=== PATIENT | female | born 1965 | race Caucasian/White ===

== ENCOUNTER 2017-04-02 06:20 | Day surgery (SDC) | payer BC ==
[~2017-04-02 06:20] MED LIST: Buffered Lidocaine 0.9% SYRIN* 5 ML/SYR SYRINGE INTRADERM ONE; Buffered Lidocaine 0.9% SYRIN* 5 ML/SYR SYRINGE ONE; CeFAZolin 1 GM PREMIX(*) 1 GM BAG (REFRIGERATE) IVPB ONE; Dexamethasone IV* 4 MG/ML 1 ML (4 MG) ONE; Famotidine IV* 10 MG/ML 2 ML (20 mg) IV SLOW PU ONE; Famotidine IV* 10 MG/ML 2 ML (20 mg) ONE; Ondansetron INJ* 2 MG/ML VIAL ONE; Scopolamine 1.5 mg* PATCH ONE; ceFAZolin 2 GM PREMIX(*) 2 GM/50 ML BAG IVPB ONE
[2017-04-02] MEDS ORDERED: Bupivacaine 0.25% EPI 200,000* 30 ML SDV ONE (07:27)
[2017-04-02] MEDS ORDERED: Propofol* 10 MG/ML 20 ML BTL IV PUSH ONE (07:36)
[2017-04-02] MEDS ORDERED: Midazolam* 1 MG/ML 5 ML VIAL (5 MG) ONE (07:36)
[2017-04-02] MEDS ORDERED: Rocuronium* 10 MG/ML VIAL ONE (07:36)
[2017-04-02] MEDS ORDERED: Lidocaine 2% PF * 5 ML VIAL ONE (07:36)
[2017-04-02] MEDS ORDERED: fentaNYL* 50 MCG/ML 5 ML VIAL (250 MCG VIAL) ONE (07:37)
[2017-04-02] MEDS ORDERED: fentaNYL* 50 MCG/ML 2 ML VIAL (100 MCG VIAL) ONE ×7 (08:46→13:14)
[2017-04-02] MEDS ORDERED: HYDROcodone/ACETAMIN 5-325 MG* 1 TAB PO PRN (09:04)
[2017-04-02] MEDS ORDERED: PROCHLORPERAZINE INJ 5 MG/ML 2 ML VIAL IV PRN (09:04)
[2017-04-02] MEDS ORDERED: ceFAZolin VIAL(*) 1 GM VIAL ONE ×2 (12:08→12:09)
[2017-04-02] MEDS: fentaNYL* 50 MCG/ML 2 ML VIAL (100 MCG VIAL) IV PRN ×3 (12:51→13:18)
[2017-04-02] MEDS ORDERED: oxyCODONE/Acetamin 5/325 MG* TAB ONE ×2 (13:14→13:59)
[2017-04-02] MEDS: oxyCODONE/Acetamin 5/325 MG* TAB PO PRN ×2 (13:15→14:00)
[2017-04-02 14:39] VITALS: BP 131/76
== END 2017-04-02 15:01 | disposition home or self-care (01) ==
LOC: OR 06:20
PROVIDERS: ATTEND Plastic Surgery
DX: N62 Hypertrophy of breast (principal); E11.9 Type 2 diabetes mellitus without complications; E03.9 Hypothyroidism, unspecified; Z79.84 Long term (current) use of oral hypoglycemic drugs; Z79.82 Long term (current) use of aspirin
CPT/HCPCS: 88305; A9270-GY; J0690; J1100; J2250; J2405; J2704; J3010

== ENCOUNTER 2018-05-06 06:08 | Day surgery (SDC) | payer BC ==
[~2018-05-06 06:08] MED LIST changes: -Buffered Lidocaine 0.9% SYRIN* 5 ML/SYR SYRINGE ONE; -CeFAZolin 1 GM PREMIX(*) 1 GM BAG (REFRIGERATE) IVPB ONE; -Dexamethasone IV* 4 MG/ML 1 ML (4 MG) ONE; +DiMENhydriNATE IV* 50 MG/ML VIAL IV PUSH ONE; +Famotidine IV* 10 MG/ML 2 ML (20 mg) IV ONE; -Famotidine IV* 10 MG/ML 2 ML (20 mg) IV SLOW PU ONE; -Famotidine IV* 10 MG/ML 2 ML (20 mg) ONE; -Ondansetron INJ* 2 MG/ML VIAL ONE; -Scopolamine 1.5 mg* PATCH ONE; -ceFAZolin 2 GM PREMIX(*) 2 GM/50 ML BAG IVPB ONE
[2018-05-06] MEDS ORDERED: DiMENhydriNATE IV* 50 MG/ML VIAL ONE (06:19)
[2018-05-06] MEDS ORDERED: Ondansetron INJ* 2 MG/ML VIAL ONE (06:19)
[2018-05-06] MEDS ORDERED: Famotidine IV* 10 MG/ML 2 ML (20 mg) ONE (06:19)
[2018-05-06] MEDS ORDERED: ceFAZolin 2 GM PREMIX (*) 2 GM/50 ML BAG IVPB ONE (06:20)
[2018-05-06] MEDS ORDERED: Scopolamine 1.5 mg* PATCH ONE (06:20)
[2018-05-06] MEDS ORDERED: Lidocain 1% EPI 1:100,000 * 30 ML MDV ONE (06:59)
[2018-05-06] MEDS ORDERED: Methylene Blue 0.5 %* 50 MG/10 ML AMP IV ONE (06:59)
[2018-05-06] MEDS ORDERED: Bupivacaine 0.25% W/EPI* 10 ML SDV ONE (07:00)
[2018-05-06] MEDS ORDERED: fentaNYL* 50 MCG/ML 2 ML VIAL (100 MCG VIAL) ONE ×3 (07:06→09:42)
[2018-05-06] MEDS ORDERED: Propofol* 10 MG/ML 20 ML BTL IV PUSH ONE (07:07)
[2018-05-06] MEDS ORDERED: Midazolam* 1 MG/ML 5 ML VIAL (5 MG) ONE (07:07)
[2018-05-06] MEDS ORDERED: Lidocaine 2% PF * 5 ML VIAL ONE (07:07)
[2018-05-06] MEDS ORDERED: Bupivacaine 0.25% SDV PF* 10 ML VIAL INJ ONE (07:31)
[2018-05-06] MEDS ORDERED: HYDROcodone/ACETAMIN 5-325 MG* 1 TAB PO PRN (08:03)
[2018-05-06] MEDS ORDERED: Naloxone* 0.4 MG/ML 1 ML VIAL IV PRN (08:03)
[2018-05-06] MEDS ORDERED: PROCHLORPERAZINE INJ 5 MG/ML 2 ML VIAL IV PRN (08:03)
[2018-05-06] MEDS ORDERED: oxyCODONE/Acetamin 5/325 MG* TAB PO PRN (08:03)
[2018-05-06] MEDS: fentaNYL* 50 MCG/ML 2 ML VIAL (100 MCG VIAL) IV PRN ×2 (09:44→09:59)
[2018-05-06] MEDS ORDERED: oxyCODONE/Acetamin 5/325 MG* TAB ONE (09:54)
[2018-05-06 10:18] VITALS: BP 133/79
== END 2018-05-06 10:41 | disposition home or self-care (01) ==
LOC: OR 06:08
PROVIDERS: ATTEND Plastic Surgery
DX: L90.5 Scar conditions and fibrosis of skin (principal); N63.0 Unspecified lump in unspecified breast; E11.9 Type 2 diabetes mellitus without complications; Z79.84 Long term (current) use of oral hypoglycemic drugs; E03.9 Hypothyroidism, unspecified
CPT/HCPCS: 88305; A9270-GY; J0690; J1240; J2250; J2405; J2704; J3010; J3490